=== PATIENT | male | born 1960 | race Caucasian/White ===

== ENCOUNTER 2018-10-14 19:26 | Inpatient (IN) | payer MEDICARE ==
[~2018-10-14] VITALS: Ht 180.3 cm; Wt 113.4 kg
[2018-10-14 19:51] LABS: APPEARANCE CLEAR (CLEAR); BILIRUBIN NEGATIVE (NEGATIVE); COLOR YELLOW (YELLOW); GLUCOSE NEGATIVE (NEGATIVE); KETONE NEGATIVE (NEGATIVE); NITRITE NEGATIVE (NEGATIVE); PROTEIN NEGATIVE (NEGATIVE); UROBILINOGEN NORMAL (NORMAL)
[2018-10-14 19:57] LABS: HEMATOCRIT 38.1 % (42.0-54.0); MCH 31.6 pg (26.0-34.0); MCHC 34.1 g/dL (31.0-37.0); MCV 92.5 fL (80.0-100.0); PLATELET COUNT 125 10x3/uL (130-400); RBC 4.12 10x6/uL (4.20-6.10); RDW 14.2 % (11.5-14.5); WBC 8.9 10x3/uL (4.8-10.8)
[2018-10-14 19:57] LABS: UDS - AMPHET NEGATIVE QUAL (NEGATIVE); UDS - BARB NEGATIVE QUAL (NEGATIVE); UDS - BENZO NEGATIVE QUAL (NEGATIVE); UDS - COCAINE NEGATIVE QUAL (NEGATIVE); UDS - OPIATE NEGATIVE QUAL (NEGATIVE); UDS - PCP NEGATIVE QUAL (NEGATIVE); UDS - THC NEGATIVE QUAL (NEGATIVE)
[2018-10-14 20:19] LABS: ALBUMIN 2.9 g/dL (3.4-5.0); ANION GAP 17.6 mmol/L (8-16); BILIRUBIN - TOTAL 0.17 mg/dL (0.2-1.3); CALCIUM 8.4 mg/dL (8.5-10.1); CARBON DIOXIDE 22.7 mmol/L (21.0-32.0); CREATININE - SERUM 1.4 mg/dL (0.6-1.3); MAGNESIUM - SERUM 1.6 mg/dL (1.8-2.4); POTASSIUM - SERUM 3.3 mmol/L (3.5-5.1); PROTEIN - SERUM 7.3 g/dL (6.4-8.2)
[2018-10-14 20:24] LABS: ELLIPTOCYTES OCC; EOSINOPHILS 5 % (0-7); LYMPHOCYTES 59 % (15-50); MONOCYTES 1 % (2-11); NEUTROPHILS 33 % (40-80); PLATELET ESTIMATE NORMAL; TARGET CELLS OCC
--- NOTE | 2018-10-14 22:30 | NUR ---
ADMITTED TO ROOM FROM ER AROUSED ENOUGH TO ASSIST WITH TRANSFER TO BED, RETURN TO SLEEP AROUSES TO TOUCH AND SPEECH. NON COHERENT SPEECH IV INFUSING WITHOUT DIFFICULTY. CALL LIGHT IN REACH O2 IN USE
[2018-10-14 23:01] VITALS: BP 112/79; Ht 180.3 cm; Wt 113.4 kg
[2018-10-15 04:00] VITALS: BP 159/100
[2018-10-15 08:51] VITALS: BP 160/109
--- NOTE | 2018-10-15 09:44 | NUR ---
ASSESSMENT PER FLOW SHEET. PT IS WITHOUT DISTRESS. HE IS ANGRY AND WANTS FOOD AND WATER. HAS BEEN UP AT BEDSIDE.REFUSING MOST TX AND OR CARE
[2018-10-15 10:28] LABS: BASOPHILS 0.2 % (0-2); EOSINOPHILS 3.3 % (0-7); HEMATOCRIT 36.3 % (42.0-54.0); HEMOGLOBIN 12.4 g/dL (13.5-17.5); IMMATURE GRANULOCYTES 0.4 % (0-5); LYMPHOCYTES 36.1 % (15-50); MCH 31.6 pg (26.0-34.0); MCHC 34.2 g/dL (31.0-37.0); MCV 92.6 fL (80.0-100.0); MEAN PLATELET VOLUME 11.5 fL (7.4-10.4); MONOCYTES 10.2 % (2-11); NEUTROPHILS 49.8 % (40-80); PLATELET COUNT 122 10x3/uL (130-400); RBC 3.92 10x6/uL (4.20-6.10); RDW 14.6 % (11.5-14.5); WBC 10.3 10x3/uL (4.8-10.8)
[2018-10-15] MEDS ORDERED: NORVASC5 MG PO (10:31)
[2018-10-15] MEDS ORDERED: VENTOLIN HFA18 GM INH (10:32)
[2018-10-15] MEDS ORDERED: SEROQUEL300 MG PO (10:32)
[2018-10-15] MEDS ORDERED: PROTONIX40 MG PO (10:33)
[2018-10-15] MEDS ORDERED: ZESTRIL20 MG PO (10:34)
[2018-10-15] MEDS ORDERED: HYDROCHLOROTHIA25 MG PO (10:35)
[2018-10-15] MEDS ORDERED: TOPAMAX50 MG PO (10:35)
[2018-10-15] MEDS ORDERED: LITHIUM CARBON300 MG PO (10:36)
[2018-10-15] MEDS ORDERED: PROZAC20 MG PO (10:36)
[2018-10-15 10:45] LABS: ALBUMIN 2.8 g/dL (3.4-5.0); ANION GAP 15.9 mmol/L (8-16); BILIRUBIN - TOTAL 0.5 mg/dL (0.2-1.3); CREATININE - SERUM 1.2 mg/dL (0.6-1.3); MAGNESIUM - SERUM 1.4 mg/dL (1.8-2.4); PROTEIN - SERUM 7.2 g/dL (6.4-8.2)
[2018-10-15 10:47] LABS: POTASSIUM - SERUM 3.9 mmol/L (3.5-5.1)
--- NOTE | 2018-10-15 14:19 | NUR ---
RESTING WITHOUT SIGNS OF DISTRESS
[2018-10-15 16:00] VITALS: BP 166/101
--- NOTE | 2018-10-15 17:16 | NUR ---
STILL WAITING ON MONITOR,SPOKE WITH CLIFF
--- NOTE | 2018-10-15 18:30 | NUR ---
SCD'S ON PT
--- NOTE | 2018-10-15 18:59 | NUR ---
REMAINS WITHOUT NEEDS. PT IS WITHOUT CHANGE.CONT PLAN OF CARE
[2018-10-15 20:00] VITALS: BP 189/94
--- NOTE | 2018-10-15 20:00 | NUR ---
ASSESSMENT PER FLOWSHEET. TO LEFT AC OF D51/2NS WITH 20MEQ KCL INFUSING AT 100CC'S/HR. SALINE LOCK PATENT TO LATERAL LEFT AC. SCD'S ON PATIENT DOES PULL THEM OFF AT TIMES.
--- NOTE | 2018-10-15 22:00 | NUR ---
UP AD DEJON TO BR PATIENT PULLS OUT IV. IV FLUIDS NOW CONNECTED TO SALINE LOCK SITE. AND RESUMED FLUIDS. PT PULLS OFF SCD'S AND REFUSES TO WEAR. SR UP X2 CALL LIGHT WITHIN REACH.
[2018-10-16] VITALS: BP 176/111
--- NOTE | 2018-10-16 | NUR ---
EYES CLOSED RESPIRATIONS WITH EASE AND UNLABORED.
--- NOTE | 2018-10-16 02:50 | NUR ---
RESTING QUIETLY DENIES NEEDS.
[2018-10-16 05:38] VITALS: BP 176/114
[2018-10-16 05:42] LABS: BASOPHILS 0.2 % (0-2); EOSINOPHILS 6.5 % (0-7); HEMATOCRIT 39.1 % (42.0-54.0); HEMOGLOBIN 13.4 g/dL (13.5-17.5); IMMATURE GRANULOCYTES 0.1 % (0-5); LYMPHOCYTES 39.5 % (15-50); MCH 31.4 pg (26.0-34.0); MCHC 34.3 g/dL (31.0-37.0); MCV 91.6 fL (80.0-100.0); MEAN PLATELET VOLUME 11.3 fL (7.4-10.4); MONOCYTES 11.5 % (2-11); NEUTROPHILS 42.2 % (40-80); PLATELET COUNT 132 10x3/uL (130-400); RBC 4.27 10x6/uL (4.20-6.10); RDW 14.5 % (11.5-14.5); WBC 8.7 10x3/uL (4.8-10.8)
[2018-10-16 06:08] LABS: ANION GAP 14.6 mmol/L (8-16); BILIRUBIN - TOTAL 0.53 mg/dL (0.2-1.3); CALCIUM 8.2 mg/dL (8.5-10.1); CARBON DIOXIDE 22.8 mmol/L (21.0-32.0); CREATININE - SERUM 1.1 mg/dL (0.6-1.3); MAGNESIUM - SERUM 1.6 mg/dL (1.8-2.4); POTASSIUM - SERUM 3.4 mmol/L (3.5-5.1); PROTEIN - SERUM 8.1 g/dL (6.4-8.2)
--- NOTE | 2018-10-16 06:31 | NUR ---
K+ RESULTS=3.4. K+40MEQ PO GIVEN PER HINA.
[2018-10-16 08:45] VITALS: BP 162/121
--- NOTE | 2018-10-16 10:02 | MORECARE ---
CASE MANAGEMENT DISCHARGE SUMMARY PATIENT: FRANK DOWNS UNIT: [id number] ADM DATE: 10/14/18 AGE: 58 : 60 SEX: M ROOM/BED: D.2222 AUTHOR: MENA MARINA PHYSICIAN: REFERRING PHYSICIAN: VERONICA KELLER MD DATE OF SERVICE: 10/16/18 Discharge Plan Patient Name: FRANK DOWNS Facility: [facility]:[place] : 1960 Planned Disposition: Home Anticipated Discharge Date: Discharge Date: Expected LOS: Initial Reviewer: [email or web address] Initial Review Date: 10/16/2018 Generated: 10/16/18 11:01 am Patient Name: FRANK DOWNS Page 35002 at 1002 All edits/amendments must be made on the electronic document DICTATION DATE: 10/16/18 1001 CERTIFIED WELLNESS PROGRAM COORDINATOR: TREASURE 10/16/18 1001 RPT#: [id number] DC DATE: STATUS: ADM IN [facility] [address] [place] [address] END OF REPORT
--- NOTE | 2018-10-16 10:10 | MORECARE ---
CASE MANAGEMENT DISCHARGE SUMMARY PATIENT: FRANK DOWNS UNIT: [id number] ADM DATE: 10/14/18 AGE: 58 : 60 SEX: M ROOM/BED: D.2222 AUTHOR: MENA MARINA PHYSICIAN: REFERRING PHYSICIAN: VERONICA KELLER MD DATE OF SERVICE: 10/16/18 Discharge Plan Patient Name: FRANK DOWNS Facility: [facility]:[place] : 1960 Planned Disposition: Home Anticipated Discharge Date: Discharge Date: Expected LOS: Initial Reviewer: [email or web address] Initial Review Date: 10/16/2018 Generated: 10/16/18 11:10 am DCPIA - Discharge Planning Initial Assessment Updated by [email or web address]: Pilar Tolliver on 10/16/18 10:03 am * Is the patient Alert and Oriented? Yes * PCP None * Pharmacy [facility] [address] * Preadmission Environment Home Alone * ADLs Independent * Equipment None * List name and contact numbers for known caregivers / representatives who currently or will assist patient after discharge: Valerie Zepeda [facility] - [phone] * Verbal permission to speak to the caregivers and representatives has been obtained from the patient. Yes * Community resources currently utilized None * Additional services required to return to the preadmission environment? No * Can the patient safely return to the preadmission environment? Yes * Has this patient been hospitalized within the prior 30 days at any hospital? No Last DP export: 10/16/18 9:02 am Patient Name: FRANK DOWNS Page [id number] at 1010 All edits/amendments must be made on the electronic document DICTATION DATE: 10/16/18 1010 RECREATIONAL DIRECTOR: TREASURE 10/16/18 1010 RPT#: [id number] DC DATE: STATUS: ADM IN [facility] [address] [place] [address] END OF REPORT
--- NOTE | 2018-10-16 10:20 | MORECARE ---
CASE MANAGEMENT DISCHARGE SUMMARY PATIENT: FRANK DOWNS UNIT: [id number] ADM DATE: 10/14/18 AGE: 58 : 60 SEX: M ROOM/BED: D.2222 AUTHOR: LAINA,DOC PHYSICIAN: REFERRING PHYSICIAN: VERONICA KELLER MD DATE OF SERVICE: 10/16/18 Discharge Plan Patient Name: FRANK DOWNS Facility: [facility]:[place] : 1960 Planned Disposition: Home Anticipated Discharge Date: Discharge Date: Expected LOS: Initial Reviewer: [email or web address] Initial Review Date: 10/16/2018 Generated: 10/16/18 11:20 am Comments DCP- Discharge Planning Updated by [email or web address]: Pilar Tolliver on 10/16/18 9:[address] Patient Name: FRANK DOWNS Admission Status: ER Accout number: [id number] Admission Date: 10-14-2018 : 1960 Admission Diagnosis: Attending: VERONICA KELLER Current LOS: 2 Anticipated DC Date: Planned Disposition: Home Primary Insurance: [employer] [facility] PF Discharge Planning Comments: CM met with patient to discuss discharge planning, he is alone in the room. States he lives alone. States he is independent with all ADL's. States he does not drive, he takes the bus where he needs to go or walks. States he will not have any money for his medication until the 16 and does not have a prescription plan. He states he will take the bus home. I told VICTOR MANUEL Schaefer that he would need help with medications. She was also informed of increased blood pressure and patient does not have a prescription plan and needs to be on economical meds. CM will continue to follow and assist with discharge planning/needs. Shooter Helper: Pilar Tolliver DCPIA - Discharge Planning Initial Assessment Updated by [email or web address]: Pilar Tolliver on 10/16/18 10:03 am * Is the patient Alert and Oriented? Yes * PCP None * Pharmacy [facility] [address] * Preadmission Environment Home Alone * ADLs Independent * Equipment None * List name and contact numbers for known caregivers / representatives who currently or will assist patient after discharge: Valerie Zepeda - [place] - [phone] * Verbal permission to speak to the caregivers and representatives has been obtained from the patient. Yes * Community resources currently utilized None * Additional services required to return to the preadmission environment? No * Can the patient safely return to the preadmission environment? Yes * Has this patient been hospitalized within the prior 30 days at any hospital? No Last DP export: 10/16/18 9:10 am Patient Name: FRANK DOWNS Page 49181 at 1020 All edits/amendments must be made on the electronic document DICTATION DATE: 10/16/18 1020 CONCRETE STONE FABRICATING SUPERVISOR: TREASURE 10/16/18 1020 RPT#: [id number] DC DATE: STATUS: ADM IN [facility] [address] [place] [address] END OF REPORT
[2018-10-16] MEDS ORDERED: ZESTRIL20 MG PO (12:18)
[2018-10-16] MEDS ORDERED: NORVASC5 MG PO (12:18)
[2018-10-16] MEDS ORDERED: LEVAQUIN750 MG PO (12:19)
[2018-10-16] MEDS ORDERED: VENTOLIN HFA18 GM INH (12:26)
[2018-10-16 12:45] VITALS: BP 158/99
[2018-10-16] MEDS ORDERED: NICODERM PATCH TRANSDERM (13:10)
--- NOTE | 2018-10-16 15:17 | NUR ---
DISCHARGE INSTRUCTIONS,STATES UNDERSTANDING.IV DCD WITH CATH TIP INTACT.
--- NOTE | 2018-10-16 15:20 | NUR ---
CALL TO [facility]. IT WILL BE APROX 30 MINUTES BEFORE THEY WILL BE HERE TO TRANSPORT PT HOME.
--- NOTE | 2018-10-16 16:06 | NUR ---
[facility] HERE FOR PT TRANSPORT HOME.
--- NOTE | 2018-10-17 08:35 | MORECARE ---
CASE MANAGEMENT DISCHARGE SUMMARY PATIENT: FRANK DOWNS UNIT: [id number] ADM DATE: 10/14/18 AGE: 58 : 60 SEX: M ROOM/BED: D.2222 AUTHOR: LAINA,DOC PHYSICIAN: REFERRING PHYSICIAN: VERONICA KELLER MD DATE OF SERVICE: 10/17/18 Discharge Plan Patient Name: FRANK DOWNS Facility: [facility]:[place] : 1960 Planned Disposition: Home Anticipated Discharge Date: Discharge Date: 10/16/2018 Expected LOS: 0 Initial Reviewer: [email or web address] Initial Review Date: 10/16/2018 Generated: 10/17/18 9:35 am Comments DCP- Discharge Planning Updated by [email or web address]: Pilar Tolliver on 10/16/18 9:[address] Patient Name: FRANK DOWNS Admission Status: ER Accout number: [id number] Admission Date: 10-14-2018 : 1960 Admission Diagnosis: Attending: VERONICA KELLER Current LOS: 2 Anticipated DC Date: Planned Disposition: Home Primary Insurance: [employer] [facility] PFF[facility] Discharge Planning Comments: CM met with patient to discuss discharge planning, he is alone in the room. States he lives alone. States he is independent with all ADL's. States he does not drive, he takes the bus where he needs to go or walks. States he will not have any money for his medication until the 16 and does not have a prescription plan. He states he will take the bus home. I told VICTOR MANUEL Schaefer that he would need help with medications. She was also informed of increased blood pressure and patient does not have a prescription plan and needs to be on economical meds. CM will continue to follow and assist with discharge planning/needs. City Routeman: Pilar Tolliver DCPIA - Discharge Planning Initial Assessment Updated by [email or web address]: Pilar Tolliver on 10/16/18 10:03 am * Is the patient Alert and Oriented? Yes * PCP None * Pharmacy [facility] [address] * Preadmission Environment Home Alone * ADLs Independent * Equipment None * List name and contact numbers for known caregivers / representatives who currently or will assist patient after discharge: Valerie Zepeda - [place] - [phone] * Verbal permission to speak to the caregivers and representatives has been obtained from the patient. Yes * Community resources currently utilized None * Additional services required to return to the preadmission environment? No * Can the patient safely return to the preadmission environment? Yes * Has this patient been hospitalized within the prior 30 days at any hospital? No Last DP export: 10/16/18 9:20 am Patient Name: FRANK DOWNS Page [id number] at 0835 All edits/amendments must be made on the electronic document DICTATION DATE: 10/17/18834 BRICK MACHINE OPERATOR: TREASURE 10/17/1835 RPT#: [id number] DC DATE:10/16/18 STATUS: DIS IN [address] [place] [address] END OF REPORT
== END 2018-10-16 16:06 | disposition home or self-care (01) | DRG 194 ==
LOC: D.ER 19:26 → D.MS 21:27 → D.EDHOLD 21:27 → D.MS 21:44
PROVIDERS: Emergency Medicine; ADMIT Internal Medicine Nephrology
DX: J18.9 Pneumonia, unspecified organism (principal); F17.203 Nicotine dependence unspecified, with withdrawal; F10.129 Alcohol abuse with intoxication, unspecified; Y90.6 Blood alcohol level of 120-199 mg/100 ml; Z91.14 Patient's other noncompliance with medication regimen; I10 Essential (primary) hypertension; E83.42 Hypomagnesemia